=== PATIENT | male | born 1980 | race Caucasian/White ===

== ENCOUNTER 2018-05-01 01:59 | Emergency (ER) ==
[2018-05-01 02:11] VITALS: BP 157/91; TEMP 98.8; BMI 43.8
[2018-05-01] MEDS ORDERED: BENTYL IM STA (02:23)
--- NOTE | 2018-05-01 02:26 | ED.PDOC ---
General ED Provider: Dr. BEBE IBARRA Chief Complaint: Abdominal Pain Stated Complaint: epigastric pain described as heaviness for few days. Feels blotted. Took Gas x but no better. Had a small normal bowel movement today. Time Seen by Physician: 02:25 Mode of Arrival: Walk-In Information Source: Patient Exam Limitations: No limitations Primary Care Provider: JEVON RESENDIZ Nursing and Triage Documentation Reviewed and Agree: Yes Does patient meet sepsis criteria?: No System Inflammatory Response Syndrome: Not Applicable Sepsis Protocol: For patient's 13 years and over: Temp is 96.8 and below OR 101 and greater Pulse >90 BPM Resp >20/minute Acutely Altered Mental Status Are patient's symptoms suggestive of a new infection, such as: -Pneumonia -Skin, Soft Tissue -Endocarditis -UTI -Bone, Joint Infection -Implantable Device -Acute Abdominal Infection -Wound Infection -Meningitis -Blood Stream Catheter Infection -Unknown GI Complaint Exam - Abdominal Pain Complaint/Exam Onset: Gradual Duration: 1 day Symptoms Are: Still present Timing: Constant Initial Severity: Moderate Current Severity: Moderate Location of Pain: Epigastric Radiates To: Denies: Chest, Back, Flank, LLQ, Inguinal Character: Reports: Cramping (pressure ) Aggravating: Reports: None Alleviating: Reports: None Associated Signs and Symptoms: Denies: Diaphoresis, Fever, Cough, Chest pain, Dizziness, Back pain, Constipation, Blood in stool, Dysuria, Urinary frequency, Decreased urine output, Decreased appetite, Discharge, Nausea, Vomiting, Diarrhea, Decreased activity Related History: Denies: Similar episode AAA Risk Factors: Reports: None Cardiac Risk Factors: Reports: None Testicular Torsion Risk Factors: Reports: None Surgical Obstruction Risk Factors: Reports: None Related Surgical History: Reports: None Abdominal Findings: Present: None Differential Diagnoses: ACS, AMI, Constipation, Gastroenteritis Review of Systems - Review Of Systems Constitutional: Reports: No symptoms Eyes: Reports: No symptoms Ears, Nose, Mouth, Throat: Reports: No symptoms Respiratory: Reports: No symptoms Cardiac: Reports: No symptoms GI: Reports: Abdominal pain, Nausea : Reports: No symptoms Musculoskeletal: Reports: No symptoms Skin: Reports: No symptoms Neurological: Reports: No symptoms Endocrine: Reports: No symptoms Hematologic/Lymphatic: Reports: No symptoms All Other Systems: Reviewed and Negative Past Medical History - Past Medical History Previously Healthy: Yes Endocrine: Reports: None Cardiovascular: Reports: Hypertension Respiratory: Reports: None Hematological: Reports: None Gastrointestinal: Reports: None Genitourinary: Reports: None Neuro/Psych: Reports: Migraine, Seizure Musculoskeletal: Reports: None Cancer: Reports: None - Surgical History General Surgical History: Reports: None - Family History Family History: Reports: None - Social History Smoking Status: Former smoker Hx Substance Use: No Alcohol Screening: Occasionally - Immunizations Tetanus Shot up to Date: Yes Physical Exam - Physical Exam Appearance: Well-appearing, Well-nourished, Obese Pain Distress: Mild Eyes: PAULIE, EOMI, Conjunctiva clear ENT: Ears normal, Nose normal, Oropharynx normal Respiratory: Airway patent, Breath sounds clear, Breath sounds equal, Respirations nonlabored Cardiovascular: RRR, Pulses normal, No rub, No murmur GI/: Soft, Tender (mild) Musculoskeletal: Normal strength, ROM intact, No edema, No calf tenderness Skin: Warm, Dry, Normal color Neurological: Sensation intact, Motor intact, Reflexes intact, Cranial nerves intact, Alert, Oriented Psychiatric: Affect appropriate, Mood appropriate Interpretation - Radiology Interpretation Radiology Interpretation By: Radiologist Radiology Results: Positive Exam Interpreted: Other (fecal statis ) Critical Care Note - Critical Care Note Total Time (mins): 0 Course - Course Hematology/Chemistry: 05/01/18 02:35 05/01/18 02:35 Orders, Labs, Meds: Lab Review 05/01/18 05/01/18 05/01/18 02:35 02:35 02:35 WBC 8.87 RBC 4.60 L Hgb 14.6 Hct 40.9 L MCV 88.9 MCH 31.7 H MCHC 35.7 H RDW Coeff of Margarito 12.3 Plt Count 183 Immature Gran % (Auto) 0.2 Neut % (Auto) 57.1 Lymph % (Auto) 28.5 Forest % (Auto) 9.6 Eos % (Auto) 3.7 Baso % (Auto) 0.9 Immature Gran # (Auto) 0.0 Neut # (Auto) 5.1 Lymph # (Auto) 2.5 Forest # (Auto) 0.9 Eos # (Auto) 0.3 Baso # (Auto) 0.1 Sodium 140.0 Potassium 3.54 Chloride 100.5 Carbon Dioxide 29.7 Anion Gap 13.34 BUN 21.6 H Creatinine 1.22 H Estimated GFR (MDRD) 67.00 BUN/Creatinine Ratio 17.70 Glucose 128.6 H Calcium 9.35 Total Bilirubin 0.31 AST 46.1 ALT 44.0 Alkaline Phosphatase 68.3 Total Creatine Kinase 641.5 H CK-MB (CK-2) 5.420 H* CK-MB (CK-2) % 0.8400 Troponin I < 0.012 Total Protein 8.56 H Albumin 4.64 Globulin 3.92 Albumin/Globulin Ratio 1.18 Amylase 129.9 H Lipase 730.6 H Urine Color Urine Clarity Urine pH Ur Specific [place] Urine Protein Urine Glucose (UA) Urine Ketones Urine Blood Urine Nitrite Urine Bilirubin Urine Urobilinogen Ur Leukocyte Esterase 05/01/18 03:00 WBC RBC Hgb Hct MCV MCH MCHC RDW Coeff of Margarito Plt Count Immature Gran % (Auto) Neut % (Auto) Lymph % (Auto) [place] % (Auto) Eos % (Auto) Baso % (Auto) Immature Gran # (Auto) Neut # (Auto) Lymph # (Auto) Forest # (Auto) Eos # (Auto) Baso # (Auto) Sodium Potassium Chloride Carbon Dioxide Anion Gap BUN Creatinine Estimated GFR (MDRD) BUN/Creatinine Ratio Glucose Calcium Total Bilirubin AST ALT Alkaline Phosphatase Total Creatine Kinase CK-MB (CK-2) CK-MB (CK-2) % Troponin I Total Protein Albumin Globulin Albumin/Globulin Ratio Amylase Lipase Urine Color Yellow Urine Clarity Clear Urine pH 5.5 Ur Specific [place] >=1.030 Urine Protein Negative Urine Glucose (UA) Negative Urine Ketones Negative Urine Blood Negative Urine Nitrite Negative Urine Bilirubin Negative Urine Urobilinogen 0.2 Ur Leukocyte Esterase Negative Orders Category Date Time Status EKG-(ED ONLY) Stat CARDIO 05/01/18 02:47 Completed ED IV/MEDIPORT/POWERPORT .ONCE EMERGENCY 05/01/18 03:33 Active AMYLASE Stat LAB 05/01/18 02:35 Completed CBC W/ AUTO DIFF Stat LAB 05/01/18 02:35 Completed CK [CREATINE KINASE] Stat LAB 05/01/18 02:35 Completed COMPREHENSIVE METABOLIC PANEL Stat LAB 05/01/18 02:35 Completed LIPASE Stat LAB 05/01/18 02:35 Completed TROPONIN I Stat LAB 05/01/18 02:35 Completed URINALYSIS C & S IF INDICATED Stat LAB 05/01/18 03:00 Completed 0.9 % Sodium Chloride [Saline Flush] MEDS 05/01/18 03:33 Discontinued 1 syr IVF PRN PRN Dicyclomine Inj [Bentyl] MEDS 05/01/18 02:23 Discontinued 20 mg IM ONCE STA Sodium Chloride 0.9% [Sodium Chloride] 1,000 ml MEDS 05/01/18 03:33 Discontinued IV BOLUS KUB [ABDOMEN 1 VIEW] Stat RADS 05/01/18 02:28 Completed Medications Discontinued Medications Generic Name Dose Route Start Last Admin Trade Name Freq PRN Reason Stop Dose Admin Dicyclomine HCl 20 mg 05/01/18 02:23 05/01/18 02:38 Bentyl IM 05/01/18 02:24 20 mg ONCE STA Administration Sodium Chloride 1,000 mls @ 1,000 mls/hr 05/01/18 03:33 05/01/18 04:49 Sodium Chloride IV 05/01/18 04:32 1,000 mls/hr BOLUS STA Administration Sodium Chloride 1 syr 05/01/18 03:33 Saline Flush IVF PRN PRN To flush IV Vital Signs: Temp Pulse Resp BP Pulse Ox 05/01/18 02:00 98.8 F 83 20 157/91 H 97 Departure - Departure Time of Disposition: 03:48 Disposition: HOME SELF-CARE Discharge Problem: Pancreatitis, acute Qualifiers: Pancreatitis type: idiopathic Acute pancreatitis complication: unspecified Qualified Code(s): K85.00 - Idiopathic acute pancreatitis without necrosis or infection Instructions: Pancreatitis (ED) Condition: Stable Pt referred to PMD for follow-up: Yes IPMP verified?: No Additional Instructions: Follow up with PCP in 3 days Push fluids Take medications as prescribed. Prescriptions: Dicyclomine HCl [Bentyl] 10 mg PO TID PRN #20 capsule PRN Reason: Abdominal Pain Sennosides [Senna Laxative] 8.6 mg PO QAM #30 tablet Allergies/Adverse Reactions: Allergies No Known Allergies Allergy (Unverified 05/01/18 02:11) Home Medications: Ambulatory Orders Dicyclomine HCl [Bentyl] 10 mg PO TID PRN #20 capsule 05/01/18 Lisinopril 20 mg PO DAILY 05/01/18 Metoprolol Succinate 25 mg PO DAILY 05/01/18 Sennosides [Senna Laxative] 8.6 mg PO QAM #30 tablet 05/01/18 Disposition Discussed With: Patient
--- NOTE | 2018-05-01 02:53 | DI ---
EXAM: AP single view of the abdomen. HISTORY: Epigastric pain. FINDINGS: There is a normal bowel gas pattern with no evidence of bowel obstruction. There is fecal stasis in the ascending colon. The bones are unremarkable. Impression: Fecal stasis in the ascending colon.
[2018-05-01] MEDS ORDERED: SODIUM CHLORIDE 1,000 ML IV STA (03:33)
== END 2018-05-01 05:26 | disposition home or self-care (01) ==
LOC: ED 01:59
DX: K85.00 Idiopathic acute pancreatitis without necrosis or infection (principal); I10 Essential (primary) hypertension; Z79.899 Other long term (current) drug therapy
CPT/HCPCS: 36415; 80053; 81001; 82150; 82550; 82553; 83690; 84484; 85025; 93005; 93010; 96360; 96372; 99283